=== PATIENT | male | born 1955 | race Caucasian/White ===

== ENCOUNTER 2022-07-20 17:38 | Emergency (ER) | payer MEDICARE, OTHER, SELFPAY ==
[2022-07-20] VITALS (10 sets, daily range): BP systolic 194–211; BP diastolic 67–105; PULSE 67–86; RESP 12–20; TEMP 36.9; O2SAT 96–100; BMI 24.3
--- NOTE | 2022-07-20 18:30 | PC.NURSE ---
Pt reports we went to the car and took scheduled BP meds
--- NOTE | 2022-07-20 20:03 | DI.RAD.S_ITS ---
PROCEDURE: XR CHEST 1V INDICATIONS: chest pain TECHNIQUE: One view of the chest was acquired. COMPARISON: None. FINDINGS: Surgical changes and devices: None. Lungs and pleura: Lungs are clear. No pleural effusions or pneumothorax. Mediastinum: Mediastinal contours appear normal. Heart size is normal. Bones and chest wall: No suspicious bony lesions. Overlying soft tissues appear unremarkable. IMPRESSION: No acute radiographic abnormality. Dictated by: Joshua Garduno M.D. on 07/20/2022 at 21:08 Approved by: Joshua Garduno M.D. on 07/20/2022 at 21:08
[2022-07-20 20:27] LABS: Add Manual Diff / Slide Review NO; Basophils Absolute Auto 0 /uL (0-100); Basophils Percent Auto 0.3 % (0-2); Eosinophils Absolute Auto 200 /uL (0-450); Eosinophils Percent Auto 1.8 % (2-4); Hematocrit 43.5 % (41-53); Lymphocytes Absolute Auto 1700 /uL (1100-4500); Lymphocytes Percent Auto 14.5 % (25-40); Mean Corpuscular HGB Conc 34.6 % (30-36); Mean Corpuscular Hemoglobin 32.1 PG (26-34); Mean Corpuscular Volume 92.7 fL (80-100); Monocytes Absolute Auto 700 /uL (0-900); Monocytes Percent Auto 6.2 % (3-14); Neutrophils Absolute Auto 9100 /uL (1500-7000); Neutrophils Percent Auto 77.2 % (50-75); Platelet Count 206 X10^3/uL (150-400); Red Blood Cell Count 4.69 X10^6/uL (4.5-5.9); Red Cell Distribution Width 12.7 % (11.6-14.8); White Blood Cell Count 11.8 X10^3/uL (4.5-11.0)
[2022-07-20 20:37] LABS: Prothrombin Time 11.9 SECONDS (10.1-12.7)
[2022-07-20 20:40] LABS: Alanine Aminotransferase 22 IU/L (<50); Albumin 4.5 g/dL (3.5-5.0); Albumin Globulin Ratio 1.1 (1.0-2.8); Alkaline Phosphatase 130 U/L (38-126); Aspartate Aminotransferase 31 IU/L (17-59); BUN Creatinine Ratio 10.6 (6-22); Bilirubin Total 0.9 mg/dL (0.2-1.3); Blood Urea Nitrogen 12 mg/dL (9-20); Calcium 9.5 mg/dL (8.4-10.2); Carbon Dioxide 27 mmol/L (22-32); Chloride 104 mmol/L (98-107); Creatine Kinase 147 U/L (55-170); Estimated Glomerular Filt Rate > 60 mL/min (>60); Globulin 4.1 g/dL (1.7-4.1); Glucose 98 mg/dL (80-110); HEMOLYSIS < 15 (0-50); Lipase 528 U/L (23-300); PTT Partial Thromboplastin Tim 63 SECONDS (26-36); Potassium 3.7 mmol/L (3.4-5.1); Sodium 141 mmol/L (137-145); Total Protein 8.6 g/dL (6.3-8.2)
[2022-07-20] MEDS: ASPIRIN 81 MG CHEW TAB 324 MG PO (20:49)
[2022-07-20 20:51] LABS: Troponin I < 0.012 ng/mL (0.01-0.034)
[2022-07-20 20:55] LABS: Creatine Kinase MB 1.54 ng/mL (<2.37)
[2022-07-20] MEDS: KETOROLAC 30 MG/ML VIAL 15 MG IV (21:55)
--- NOTE | 2022-07-20 22:30 | ED_ITS ---
HPI - General Adult General Chief complaint: Hypertension Stated complaint: lt jaw pain Time Seen by Provider: 07/20/22 20:02 Source: patient Mode of arrival: Ambulatory History of Present Illness HPI narrative: Patient is a 67-year-old male with history of hypertension presenting today with 1 week of headache and left-sided jaw pain. He was actually seen evaluated by his PCP last week. He would head CT he was having some mild headaches but really started having left-sided jaw pain and swelling today. He most taking some ibuprofen occasionally helped over today the ibuprofen did not now. He denies any fever or chills. He has both full upper and lower dentures. He says actually feels like he has a mild tooth infection by does not have any teeth. He is some obvious swelling in the submandibular area on the left side no eryt patti. He denies any tongue pain no difficulty swallowing. Related Data Home Medications Medication Instructions Recorded Confirmed lisinopril 30 mg tablet 30 mg PO DAILY 07/20/22 07/20/22 Previous Rx's Medication Instructions Recorded amoxicillin 875 mg-potassium 1 tab PO BID #20 tabs 07/21/22 clavulanate 125 mg tablet prednisone 20 mg tablet 40 mg PO DAILY #10 tabs 07/21/22 Allergies Allergy/AdvReac Type Severity Reaction Status Date / Time Penicillins AdvReac Mild Verified 07/20/22 17:15 Review of Systems Review of Systems ROS Unobtainable: All systems reviewed & are unremarkable except as noted in HPI and below Patient History Social History Smoking Status: Current every day smoker Smoking Status: Current every day smoker tobacco type: cigarettes alcohol intake frequency: a few times a month Substance Use Type: does not use Exam Initial Vital Signs Initial Vital Signs: Vital Signs Temperature 98.4 F 07/20/22 17:46 Pulse Rate 79 07/20/22 17:46 Respiratory Rate 16 07/20/22 17:46 Blood Pressure 211/105 H 07/20/22 17:46 Pulse Oximetry 99 07/20/22 17:46 Oxygen Delivery Method Room Air 07/20/22 17:46 GENERAL: Alert 67-year-old male appears uncomfortable HEENT: Head atraumatic,EOMI, pupils reactive, face symmetric, [moist] mucous membranes. Left-sided submandibular lymphadenopathy no significant erythema no trismus no obvious dental abscess CARDIOVASCULAR: Regular rate and rhythm without murmurs, rubs or gallops. RESPIRATORY: Breath sounds equal bilaterally, no wheezes rales or rhonchi. ABDOMEN: Soft, nontender. Normoactive bowel sounds all 4 quadrants. No guarding or rebound. EXTREMITIES: Normal range of motion, no clubbing or edema. Neurovascularly intact NEUROLOGICAL: Alert and oriented x4. SKIN: Warm, dry, no laceration, no petechiae, no rashes or lesions. Course Orders Ordered: ED Orders 07/20/22 20:03 XR chest 1V Stat EKG-12 Lead Stat 07/20/22 20:17 Complete Blood Count AUTO DIFF Stat Comprehensive Metabolic Panel Stat Lipase Stat Magnesium Stat PTT Partial Thromboplastin Lorenzo Stat Prothrombin Time INR Stat Troponin & CK Cardiac Panel Stat 07/20/22 22:42 CT soft tissue neck w con Stat Discontinued Medications Aspirin (Aspirin 81 Mg Chew Tab) 324 mg PO NOW ONE Stop: 07/20/22 20:04 Last Admin: 07/20/22 20:49 Dose: 324 mg Documented By: REJI Dexamethasone (Dexamethasone 10 Mg/Ml Vial) 10 mg IV NOW ONE Stop: 07/20/22 22:43 Last Admin: 07/20/22 23:03 Dose: 10 mg Documented By: MICAELA Sodium Chloride (Normal Saline 0.9%) 1,000 mls @ 1,000 mls/hr IV BOLUS ONE Stop: 07/20/22 23:41 Last Infusion: 07/21/22 00:39 Dose: 0 mls/hr Documented By: Admin: 07/20/22 23:03 Dose: 1,000 mls/hr Documented By: DIANA Ampicillin Sodium/Sulbactam (Sodium 3 gm/ Sodium Chloride) 100 mls @ 200 mls/hr IV NOW ONE Stop: 07/20/22 22:43 Last Infusion: 07/20/22 23:46 Dose: 0 mls/hr Documented By: Admin: 07/20/22 23:03 Dose: 200 mls/hr Documented By: [facility] Ketorolac Tromethamine (Ketorolac 30 Mg/Ml Vial) 15 mg IV NOW ONE Stop: 07/20/22 21:52 Last Admin: 07/20/22 21:55 Dose: 15 mg Documented By: [facility] Vital Signs Vital signs: Vital Signs - 8 hr 04/18/23 20:53 07/20/22 21:00 07/20/22 21:00 Temperature Pulse Rate 74 69 Respiratory Rate 14 12 Blood Pressure 197/67 H Pulse Oximetry 100 99 Oxygen Delivery Method 07/20/22 21:30 07/20/22 21:31 07/20/22 21:31 Temperature Pulse Rate 74 75 Respiratory Rate 18 17 Blood Pressure 206/86 H Pulse Oximetry 98 98 Oxygen Delivery Method 07/20/22 22:00 07/20/22 22:00 07/20/22 22:30 Temperature Pulse Rate 67 Respiratory Rate 12 Blood Pressure 208/91 H 194/76 H Pulse Oximetry 99 Oxygen Delivery Method 07/20/22 22:30 07/20/22 23:00 07/20/22 23:30 Temperature Pulse Rate 73 86 73 Respiratory Rate 18 20 Blood Pressure Pulse Oximetry 96 98 Oxygen Delivery Method 07/21/22 00:00 07/21/22 00:30 07/21/22 01:00 Temperature Pulse Rate 70 71 72 Respiratory Rate 12 18 17 Blood Pressure Pulse Oximetry 98 96 95 Oxygen Delivery Method 07/21/22 01:19 07/21/22 01:44 Temperature 98 F Pulse Rate 77 80 Respiratory Rate 12 18 Blood Pressure 175/81 H 159/72 H Pulse Oximetry 98 95 Oxygen Delivery Method Room Air Room Air Medical Decision Making Lab Data 07/20/22 20:17 07/20/22 20:17 Labs: Lab Results 07/20/22 07/20/22 07/20/22 Range/Units 20:17 20:17 20:17 WBC 11.8 H (4.5-11.0) X10^3/uL RBC 4.69 (4.5-5.9) X10^6/uL Hgb 15.0 (13.5-17.5) g/dL Hct 43.5 (41-53) % MCV 92.7 (80-100) fL MCH 32.1 (26-34) PG MCHC 34.6 (30-36) % RDW 12.7 (11.6-14.8) % Plt Count 206 (150-400) X10^3/uL Neut % (Auto) 77.2 H (50-75) % Lymph % (Auto) 14.5 L (25-40) % [place] % (Auto) 6.2 (3-14) % Eos % (Auto) 1.8 L (2-4) % Baso % (Auto) 0.3 (0-2) % Neut # (Auto) 9100 H (4145-1790) /uL Lymph # (Auto) 1700 (5965-6690) /uL [place] # (Auto) 700 (0-900) /uL Eos # (Auto) 200 (0-450) /uL Baso # (Auto) 0 (0-100) /uL PT 11.9 (10.1-12.7) SECONDS INR 1.0 (0.9-1.3) APTT 63 H (26-36) SECONDS Sodium 141 (137-145) mmol/L Potassium 3.7 (3.4-5.1) mmol/L Chloride 104 (98-107) mmol/L Carbon Dioxide 27 (22-32) mmol/L BUN 12 (9-20) mg/dL Creatinine 1.13 (0.66-1.25) mg/dL Estimated GFR > 60 (>60) mL/min BUN/Creatinine Ratio 10.6 (6-22) Glucose 98 (80-110) mg/dL Calcium 9.5 (8.4-10.2) mg/dL Magnesium 2.0 (1.6-2.3) mg/dL Total Bilirubin 0.9 (0.2-1.3) mg/dL AST 31 (17-59) IU/L ALT 22 (<50) IU/L Alkaline Phosphatase 130 H (38-126) U/L Total Creatine Kinase 147 (55-170) U/L CK-MB (CK-2) 1.54 (<2.37) ng/mL CK-MB (CK-2) Rel Index 1.0 L (1.5-5.0) % Troponin I < 0.012 (0.01-0.034) ng/mL Total Protein 8.6 H (6.3-8.2) g/dL Albumin 4.5 (3.5-5.0) g/dL Globulin 4.1 (1.7-4.1) g/dL Albumin/Globulin Ratio 1.1 (1.0-2.8) Lipase 528 H (23-300) U/L Imaging Data Chest x-ray: Radiologist's Impression: PROCEDURE:? XR CHEST 1V ? INDICATIONS:? chest pain ? TECHNIQUE:? One view of the chest was acquired.? ? COMPARISON:? None. ? FINDINGS:? ? Surgical changes and devices:? None.? ? Lungs and pleura:? Lungs are clear.? No pleural effusions or pneumothorax.? ? Mediastinum:? Mediastinal contours appear normal.? Heart size is normal.? ? Bones and chest wall:? No suspicious bony lesions.? Overlying soft tissues appear unremarkable.? ? IMPRESSION:? No acute radiographic abnormality.? ? ? Dictated by: Joshua Garduno M.D. on 07/20/2022 at 21:08 ? ct soft tissue neck: Radiologist's Impression: PROCEDURE:? CT SOFT TISSUE NECK W CON ? INDICATIONS:? swelling left submadibular ? TECHNIQUE:? After the administration of intravenous contrast, 3.0 mm axial sections acquired from the sella to the aortic arch.? Additional oblique axial 3.0 mm sections acquired through the pharynx.? 3 mm thick coronal and sagittal reformats were generated.? For radiation dose reduction, the following was used:? automated exposure control.? ? COMPARISON:? None. ? FINDINGS:? Image quality:? Good ? Brain: Partially visualized, unremarkable. ? Orbits: No masses or abscess. ? Mouth and pharynx: Tonsils are unremarkable. No measurable mass. No abscess. ? Airway:? Slightly deviated to the right, likely due to edema.? There is probably debris in the left piriformis sinus. ? Neck spaces:? There is significant inflammation in the left side of the face and upper neck, involving the reading recovery teacher space, extending to the parapharyngeal space and parotid space.? There are mildly enlarged cervical lymph nodes in the region, as well as inflammatory appearance of the left submandibular gland.? There adjacent fascial thickening and edema.? Of note, there is a partially seen 2 with suspected dental disease in the back of the left mandible.? No drainable abscess is identified. ? Glands:? As above ? Vessels: Patent. No occlusion. ? Upper chest: Unremarkable. No apical pneumothorax. ? Sinuses and mastoids:? Mild left mucous cyst.? Mastoids are clear. ? Bones:? Heterogeneity of the maxilla and mandible may be due to prior dental disease.? Patient is almost edentulous.? Degenerative changes, without acute or suspicious appearance of the bones. ? IMPRESSION:? Significant swelling in the left face/neck as described above, also involving the left parotid, left submandibular gland and reading recovery teacher muscles, with adjacent mildly enlarged lymph nodes and heterogeneity of the above structures.? This may be related to dental disease in the back of the left mandible.? No large abscess.? Follow-up imaging could be obtained to ensure there is no underlying mass, particularly if the above description is not clinically concordant. ? Dictated by: Joshua Garduno M.D. on 07/20/2022 at 23:07 ? ? ECG Data Interpretation: Normal sinus rhythm rate 72 UT interval 152 QRS 84 QTC 411 T-wave inversion noted lead 3 only no priors to compare MDM Narrative Medical decision making narrative: Patient 67-year-old male history of hypertension presents today with facial swelling and submandibular swelling ongoing for about 1 week. No fever. Mild leukocytosis of 11.7. He is afebrile hypertensive and not tachycardic. There is no evidence of sepsis. He really has some mild swelling on exam no significant erythema. He is no difficulty managing his secretions no obvious dental abscess although there is concern for deep neck infection. CT shows that he has significant edema left face and left upper neck. He got dexamethasone Unasyn and IV fluids. That actually helped lot of his pain the swelling actually gone down. At this time I think reasonable send home on antibiotics and prednisone. However discuss strict return precautions. And return as ne eded. Due to hypertension and jaw pain cardiac labs and evaluation was also done. EKG does show T-wave inversion lead 3 has a negative troponin. Really do not think symptoms are consistent with acute coronary syndrome. It seems to be obvious he has facial swelling and infection, pain is also likely causing elevated blood pressure. His blood pressure did improve with medication and fluids in the ED. Discharge Plan Departure Patient Disposition: Home Clinical Impression: Cellulitis of face Instructions: DI for Cellulitis -- Adult Activity Restrictions/Additional Instructions: *You have been diagnosed with cellulitis *What to do: At this time please monitor very carefully. You may need to come back for further IV antibiotics. However I am happy that you received significant improvement here in the ED. *Continue to take medications as directed--> SENT TO [facility] in [place] Augmentin 875 mg twice a day for 10 days Prednisone 40 mg once a day in the morning for 5 days (do not take ibuprofen, Aleve Advil, naproxen or other NSAID) Tylenol 650 mg every 4-6 hours if needed for [id number] *Follow up with your primary care provider in 2-3 days or call [phone] *Return to ER if you should have increasing swelling difficulty swallowing, redness fever [or] any new, worsening or concerning symptoms Prescriptions: New prednisone 20 mg tablet 40 mg PO DAILY Qty: 10 0RF amoxicillin-pot clavulanate 875-125 mg tablet 1 tab PO BID Qty: 20 0RF No Action lisinopril 30 mg tablet 30 mg PO DAILY Stand Alone Forms: Patient Portal/API
--- NOTE | 2022-07-20 22:42 | DI.CT.S_ITS ---
PROCEDURE: CT SOFT TISSUE NECK W CON INDICATIONS: swelling left submadibular TECHNIQUE: After the administration of intravenous contrast, 3.0 mm axial sections acquired from the sella to the aortic arch. Additional oblique axial 3.0 mm sections acquired through the pharynx. 3 mm thick coronal and sagittal reformats were generated. For radiation dose reduction, the following was used: automated exposure control. COMPARISON: None. FINDINGS: Image quality: Good Brain: Partially visualized, unremarkable. Orbits: No masses or abscess. Mouth and pharynx: Tonsils are unremarkable. No measurable mass. No abscess. Airway: Slightly deviated to the right, likely due to edema. There is probably debris in the left piriformis sinus. Neck spaces: There is significant inflammation in the left side of the face and upper neck, involving the network architect space, extending to the parapharyngeal space and parotid space. There are mildly enlarged cervical lymph nodes in the region, as well as inflammatory appearance of the left submandibular gland. There adjacent fascial thickening and edema. Of note, there is a partially seen 2 with suspected dental disease in the back of the left mandible. No drainable abscess is identified. Glands: As above Vessels: Patent. No occlusion. Upper chest: Unremarkable. No apical pneumothorax. Sinuses and mastoids: Mild left mucous cyst. Mastoids are clear. Bones: Heterogeneity of the maxilla and mandible may be due to prior dental disease. Patient is almost edentulous. Degenerative changes, without acute or suspicious appearance of the bones. IMPRESSION: Significant swelling in the left face/neck as described above, also involving the left parotid, left submandibular gland and network architect muscles, with adjacent mildly enlarged lymph nodes and heterogeneity of the above structures. This may be related to dental disease in the back of the left mandible. No large abscess. Follow-up imaging could be obtained to ensure there is no underlying mass, particularly if the above description is not clinically concordant. Dictated by: Joshua Garduno M.D. on 07/20/2022 at 23:07 Approved by: Joshua Garduno M.D. on 07/20/2022 at 23:14
[2022-07-20] MEDS: AMPICILLIN/SULBACTAM 3 GM 3 GM in SODIUM CHLORIDE 0.9% 100 ML IV (23:03)
[2022-07-20] MEDS: DEXAMETHASONE 10 MG/ML VIAL IV (23:03)
[2022-07-20] MEDS: SODIUM CHLORIDE 0.9% 1,000 ML 1000 ML IV (23:03)
[2022-07-21] VITALS: PULSE 70; RESP 12; O2SAT 98
[2022-07-21 00:30] VITALS: PULSE 71; RESP 18; O2SAT 96
[2022-07-21 01:00] VITALS: PULSE 72; RESP 17; O2SAT 95
[2022-07-21 01:19] VITALS: BP 175/81; PULSE 77; RESP 12; TEMP 36.6; O2SAT 98
[2022-07-21 01:44] VITALS: BP 159/72; PULSE 80; RESP 18; O2SAT 95
== END 2022-07-21 01:44 | disposition home or self-care (01) ==
PROVIDERS: Emergency Provider Emergency Medicine
DX: L03.211 Cellulitis of face (principal); R07.9 Chest pain, unspecified
CPT/HCPCS: 36415; 70491; 71045; 80053; 82550; 82553; 83690; 83735; 84484; 85025; 85610; 85730; 93005; 93010; 96365; 96375; 99284; J0295; J1100; J1885; Q9967